=== PATIENT | male | born 1985 | race Caucasian/White ===

== ENCOUNTER → 2016-06-25 | Outpatient (CLI) | payer OTHER ==
--- NOTE | 2016-06-25 15:46 | XR ---
EXAMINATION TYPE: XR shoulder complete RT DATE OF EXAM: 06/25/2016 2:59 PM CLINICAL HISTORY: Chronic right shoulder pain since age 16 per patient. TECHNIQUE: Two views of the right shoulder are obtained. COMPARISON: None. FINDINGS: There is no acute fracture/dislocation evident in the right shoulder. The acromioclavicul ar and glenohumeral joint spaces appear within normal limits. The visualized ribs are intact and unr emarkable. IMPRESSION: Unremarkable study.
== END | disposition home or self-care (01) ==
LOC: RADXRMAIN 14:48
PROVIDERS: ATTEND Internal Medicine
DX: M25.511 Pain in right shoulder (principal)

== ENCOUNTER 2016-07-06 15:01 | Emergency (ER) | payer OTHER ==
[2016-07-06 15:08] VITALS: BP 129/91; PULSE 90; RESP 20; TEMP 98.2
[2016-07-06] MEDS ORDERED: predniSONE 50 MG TAB PO STA (15:44)
--- NOTE | 2016-07-06 16:06 | ED ---
Back Pain HPI - General Chief Complaint: Back Pain/Injury Stated Complaint: back pain Time Seen by Provider: 07/06/16 15:25 Source: patient, RN notes reviewed Limitations: no limitations - History of Present Illness Initial Comments: Patient is a 30-year-old male with chief complaint of lower back pain for approximately 5 days. Patient reports that it radiates down his left leg. Patient denies any numbness or tingling or saddle anesthesias. Patient reports that the pain is worse with certain positions. Patient denies any history of chronic back pain, specific injury or surgeries. Patient partner reports that she has done heat and ice as well as deep tissue massage however it is continue to persist. Patient denies taking any narcotic pain medications and just anti- inflammatory medications. Patient denies any fever, chills, nausea, vomiting, abdominal pain, changes in bowel or bladder habits, chest pain, shortness of breath, headache, or vision changes. - Related Data Home Medications Medication Instructions Recorded Confirmed Naproxen Sodium [Aleve] 220 mg PO Q12HR PRN 07/06/16 07/06/16 Previous Rx's Medication Instructions Recorded Acetaminophen-Codeine 300-30mg 1 tab PO Q6H PRN #12 tablet 07/06/16 [Tylenol #3] Cyclobenzaprine [Flexeril] 10 mg PO TID #15 tab 07/06/16 predniSONE 50 mg PO DAILY #4 tab 07/06/16 Allergies Allergy/AdvReac Type Severity Reaction Status Date / Time aripiprazole [From Abilify] Allergy Unknown Verified 07/06/16 15:41 cephalexin [From Keflex] Allergy Rash/Hives Verified 07/06/16 15:41 quetiapine [From Seroquel] Allergy Unknown Verified 07/06/16 15:41 anti-depressants Allergy Unknown Uncoded 07/06/16 15:09 Review of Systems ROS Statement: Those systems with pertinent positive or pertinent negative responses have been documented in the HPI. ROS Other: All systems not noted in ROS Statement are negative. Past Medical History Past Medical History: No Reported History History of Any Multi-Drug Resistant Organisms: None Reported Past Surgical History: No Surgical Hx Reported Past Psychological History: Anxiety, Bipolar Smoking Status: Current every day smoker Past Alcohol Use History: None Reported Past Drug Use History: Marijuana General Exam Limitations: no limitations General appearance: alert, in no apparent distress Head exam: Present: atraumatic, normocephalic, normal inspection Eye exam: Present: normal appearance, PERRL, EOMI. Absent: scleral icterus, conjunctival injection, periorbital swelling ENT exam: Present: normal exam, mucous membranes moist, TM's normal bilaterally , normal external ear exam Neck exam: Present: normal inspection. Absent: tenderness, meningismus, lymphadenopathy Respiratory exam: Present: normal lung sounds bilaterally. Absent: respiratory distress, wheezes, rales, rhonchi, stridor Cardiovascular Exam: Present: regular rate, normal rhythm, normal heart sounds. Absent: systolic murmur, diastolic murmur, rubs, gallop, clicks GI/Abdominal exam: Present: soft, normal bowel sounds. Absent: distended, tenderness, guarding, rebound, rigid Extremities exam: Present: normal inspection, full ROM, normal capillary refill. Absent: tenderness, pedal edema, joint swelling, calf tenderness Back exam: Present: normal inspection, tenderness (lower lumbar tenderness. ) Neurological exam: Present: alert, oriented X3, CN II-XII intact Psychiatric exam: Present: normal affect, normal mood Skin exam: Present: warm, dry, intact, normal color. Absent: rash Course Vital Signs 07/06/16 15:06 Temperature 98.2 F Pulse Rate 90 Respiratory 20 Rate Blood Pressure 129/91 O2 Sat by Pulse 100 Oximetry Medical Decision Making - Medical Decision Making Patient is a 22-year-old male with chief complaint of lower back pain for approximately 4 days. Xray lumbar spine is negative for acute process. PAtient given PO flexeril and ultram. Patient advised to follow up with PCP or mechanical engineering specialist if this continues to persist. PAtient given prescriptions for steroid, ultram, and flexeril. PAtient understands treatment plan and I also discussed to continue to do other therapeutic measures such as chiropractor , massage, and heat and ice over the back. REturn parameters discussed. - Radiology Data Radiology results: report reviewed Adverse monitor is reviewed to be negative for any acute process. Disposition Clinical Impression: Lower back pain Disposition: HOME SELF-CARE Condition: Good Instructions: Acute Low Back Pain (ED) Additional Instructions: Patient instructed to continue to use Motrin and Tylenol and prescribed anti- inflammatory and pain medications. Patient instructed to follow-up with orthopedic physician. Return to the [facility] if any alarming signs or symptoms occur. Continue to use heat and ice and massage therapies for relief. Prescriptions: Acetaminophen-Codeine 300-30mg [Tylenol #3] 1 tab PO Q6H PRN #12 tablet PRN Reason: Pain Cyclobenzaprine [Flexeril] 10 mg PO TID #15 tab predniSONE 50 mg PO DAILY #4 tab Referrals: Radha De Los Santos MD [Primary Care Provider] - 1-2 days Papa Luis MD [STAFF PHYSICIAN] - 1-2 days Time of Disposition: 16:17
--- NOTE | 2016-07-06 16:12 | XR ---
EXAMINATION TYPE: XR lumbar spine 2 or 3V DATE OF EXAM: 07/06/2016 3:54 PM COMPARISON: NONE HISTORY: Back pain TECHNIQUE: 3 views FINDINGS: I see no fracture nor dislocation. The vertebra have normal alignment.. Disc spaces are normal. Sacroiliac joints are normal. IMPRESSION: Normal lumbar spine.
== END 2016-07-06 16:27 | disposition home or self-care (01) ==
LOC: EC 15:01
DX: M54.5 Low back pain (principal); F17.200 Nicotine dependence, unspecified, uncomplicated; Z88.1 Allergy status to other antibiotic agents; Z88.8 Allergy status to other drugs, medicaments and biological substances
CPT/HCPCS: 72100; 99283; J7512

== ENCOUNTER → 2016-08-13 | Outpatient (CLI) | payer OTHER ==
[2016-08-13 10:05] LABS: CH 31.2; CHCM 34.7; HCT 46.5 % (39.0-53.0); HDW 2.69; MCHC 34.3 g/dL (31.0-37.0); MCV 90.4 fL (80.0-100.0); Mean Platelet Volume 7.8; RBC 5.15 m/uL (4.30-5.90); RDW 12.9 % (11.5-15.5); WBC 6.1 k/uL (3.8-10.6)
[2016-08-13 10:22] LABS: ALT 37 U/L (21-72); AST 24 U/L (17-59); Alkaline Phosphatase 47 U/L (38-126); Anion Gap 8 mmol/L; Blood Urea Nitrogen 15 mg/dL (9-20); Calcium 9.6 mg/dL (8.4-10.2); Carbon Dioxide 28 mmol/L (22-30); Chloride 107 mmol/L (98-107); Glucose 104 mg/dL (74-99); Non-African American GFR(MDRD) >60 (>60 ml/min/1.73 sqM); Potassium 4.8 mmol/L (3.5-5.1); Sodium 143 mmol/L (137-145); Total Bilirubin 1.1 mg/dL (0.2-1.3)
[2016-08-13 11:14] LABS: Hemoglobin A1C 5.2 % (4.2-6.1)
== END | disposition home or self-care (01) ==
LOC: LABWHC1 09:37
PROVIDERS: ATTEND Psychiatry & Neurology Pain Medicine
DX: R56.9 Unspecified convulsions (principal)
CPT/HCPCS: 36415; 80053; 83036; 83519; 85027

== ENCOUNTER → 2016-10-13 | Outpatient (CLI) | payer OTHER ==
--- NOTE | 2016-10-13 10:38 | MR ---
EXAMINATION TYPE: MR lumbar spine wo con DATE OF EXAM: 10/13/2016 10:27 AM COMPARISON: NONE HISTORY: Back pain TECHNIQUE: T1 and T2 axial and sagittal images of the lumbar spine are submitted. FINDINGS: There is no abnormal signal seen within the visualized spinal cord or paraspinal soft tissu es. Tiny simple appearing right renal cyst At L1-2 there is no degenerative disc disease, disc herniation, canal stenosis, or foraminal encroach ment. At L2-3 there is no degenerative disc disease, disc herniation, canal stenosis, or foraminal encroach ment. At L3-4 there is no degenerative disc disease, disc herniation, canal stenosis, or foraminal encroach ment. At L4-5 there is no degenerative disc disease, disc herniation, canal stenosis, or foraminal encroach ment. At L5-S1 there is annular tear and broad-based central and right paracentral disc herniation with mod erate effacement of the thecal sac. Mild to moderate right-sided foraminal encroachment and mild left foraminal encroachment. IMPRESSION: 1. Broad-based central disc herniation L5-S1 with effacement of thecal sac and bilateral foraminal en croachment.
--- NOTE | 2016-10-13 21:12 | MR ---
MRI of the brain with and without contrast HISTORY: Headaches. TECHNIQUE: T1-weighted sagittal, T2, FLAIR, and diffusion axial, postcontrast T1 axial and coronal vi ews of the brain are submitted. CONTRAST: 15 mL of MultiHance FINDINGS: There is no evidence of acute ischemia. The ventricles, basal cisterns, and sulci overlying the co nvexities are consistent with the patient's age. There is no mass effect or enhancing mass. Craniocervical junction maintained. Sella turcica has a normal appearance. No evidence of cerebellopo ntine angle mass. Prominent cisterna magna noted. Changes of mild chronic sinusitis. No abnormal signal within the visualized temporal lobe. No enhanci ng mass. WHITE MATTER: No abnormal signal seen within the visualized white matter. IMPRESSION: 1. No acute intracranial process
== END | disposition home or self-care (01) ==
LOC: RADMRIMAIN 09:44
PROVIDERS: ATTEND Psychiatry & Neurology Pain Medicine
DX: M51.27 Other intervertebral disc displacement, lumbosacral region (principal); G40.909 Epilepsy, unspecified, not intractable, without status epilepticus; Z88.1 Allergy status to other antibiotic agents; Z88.8 Allergy status to other drugs, medicaments and biological substances
CPT/HCPCS: 70553; 72148; A9577

== ENCOUNTER → 2023-10-12 | Outpatient (CLI) | payer OTHER ==
--- NOTE | 2023-10-13 10:10 | MR ---
EXAMINATION TYPE: MR brain wo con DATE OF EXAM: 10/12/2023 3:13 PM CLINICAL INDICATION:Male, 38 years old with history of R51.9 HEADACHE, UNSPECIFIED; PHH, Neck pain, h eadaches getting worse since last MRI in 2017 COMPARISON: 10/13/2016. TECHNIQUE: Multi planar, multi sequence imaging was performed through the brain including: T1, T2, In version recovery, Diffusion weighted imaging, and gradient echo imaging. No gadolinium was given. FINDINGS: The wayne-white junctions, ventricular system, basal cisterns appear unremarkable. Few scattered foc i of high T2 signal intensity are seen within the periventricular white matter including series 601 i mage 23a image 25 in the right frontal lobe. Midline structures show no abnormality. Diffusion-weight ed imaging shows no evidence of restricted diffusion. The susceptibility weighted images do not revea l any evidence for micro-hemorrhage. The bone marrow signal is within normal limits. Paranasal sinuses and mastoid air cells: No significant paranasal sinus disease. Visualized orbits: Orbital contents are intact. IMPRESSION: 1. No evidence of intracranial mass or acute/subacute infarct. 2. Few scattered nonspecific white matter changes could represent sequela of patient's history of sourav kanika demyelination.
== END | disposition home or self-care (01) ==
LOC: RADMRIMAIN 14:43
PROVIDERS: ATTEND Family Medicine
DX: G93.89 Other specified disorders of brain (principal); M54.2 Cervicalgia
CPT/HCPCS: 70551